=== PATIENT | female | born 1995 | race American Indian/Alaskan Native ===

== ENCOUNTER 2020-11-02 21:02 | Emergency (ER) | payer SELFPAY ==
[~2020-11-02] VITALS: Ht 172.7 cm; Wt 88.1 kg
[2020-11-02 21:03] VITALS: BP 144/70
--- NOTE | 2020-11-02 22:42 | REPVR ---
PROCEDURE INFORMATION: Exam: XR Right Knee Exam date and time: 11/02/2020 9:17 PM Age: 24 years old Clinical indication: Other: Pain, truma, injury; Additional info: Pain, trauma, injury TECHNIQUE: Imaging protocol: XR Right knee. Views: 4 or more views. COMPARISON: No relevant prior studies available. FINDINGS: Bones/joints: There is no fracture or dislocation. The joint spaces are intact. Soft tissues: Normal. IMPRESSION: No fracture Electronically signed by: Shakeel Stover On 11/02/2020 22:42:27 PM
== END 2020-11-02 23:07 | disposition left against medical advice (07) ==
LOC: M ED 21:02
DX: Z53.21 Procedure and treatment not carried out due to patient leaving prior to being seen by health care provider (principal)

== ENCOUNTER 2021-05-03 11:15 | Emergency (ER) | payer SELFPAY ==
[~2021-05-03] VITALS: Ht 172.7 cm; Wt 103.1 kg
[2021-05-03] MEDS ORDERED: OSEL75CA PO (15:26)
[2021-05-03] MEDS ORDERED: VENTAER INH (15:52)
[2021-05-03 16:35] VITALS: BP 131/84
== END 2021-05-03 16:35 | disposition home or self-care (01) ==
LOC: M ED 11:15
DX: J09.X9 Influenza due to identified novel influenza A virus with other manifestations (principal); R01.1 Cardiac murmur, unspecified; Z88.0 Allergy status to penicillin; F17.210 Nicotine dependence, cigarettes, uncomplicated
CPT/HCPCS: 99283; U0003

== ENCOUNTER 2021-06-20 18:22 | Emergency (ER) | payer SELFPAY ==
[~2021-06-20] VITALS: Ht 172.7 cm; Wt 106.3 kg
[~2021-06-20 18:22] MED LIST: OSEL75CA PO; VENTAER INH
[2021-06-20] MEDS ORDERED: BACTRIM 160MG/800MG DS TAB PO ONE (20:15)
[2021-06-20] MEDS ORDERED: BACT800T5 PO (20:16)
[2021-06-20 20:32] VITALS: BP 135/83
== END 2021-06-20 20:39 | disposition home or self-care (01) ==
LOC: M ED 18:22
DX: L02.211 Cutaneous abscess of abdominal wall (principal); E66.9 Obesity, unspecified; F17.200 Nicotine dependence, unspecified, uncomplicated; Z88.0 Allergy status to penicillin

== ENCOUNTER 2022-01-15 23:36 | Inpatient (IN) | payer SELFPAY ==
[~2022-01-15] VITALS: Ht 172.7 cm; Wt 92.1 kg
[~2022-01-15 23:36] MED LIST changes: +BACT800T5 PO
[2022-01-16 00:31] LABS: MEAN CORPUSCULAR HEMOGLOBIN 28.4 pg (27.0-33.0); MEAN CORPUSCULAR HGB CONC 33.3 g/dl (32.0-36.5); MEAN CORPUSCULAR VOLUME 85.3 fl (80.0-96.0); PLATELET COUNT, AUTOMATED 256 10^3/uL (150-450); RED BLOOD COUNT 4.22 10^6/uL (4.00-5.40); WHITE BLOOD COUNT 6.9 10^3/uL (4.0-10.0)
[2022-01-16 00:57] LABS: RSV AMPLIFICATION NEGATIVE (NEGATIVE)
[2022-01-16 01:07] LABS: HCG, SERUM QUALITATIVE NEGATIVE (NEGATIVE)
[2022-01-16 01:21] LABS: ACETAMINOPHEN LEVEL < 2.0 UG/ML (10.0-30.0); ALBUMIN 3.3 GM/DL (3.2-5.2); ALT/SGPT 33 U/L (12-78); BILIRUBIN,DIRECT 0.1 MG/DL (0.0-0.2); BILIRUBIN,TOTAL 0.3 MG/DL (0.2-1.0); BLOOD UREA NITROGEN 7 MG/DL (7-18); CALCIUM LEVEL 8.9 MG/DL (8.5-10.1); CARBON DIOXIDE LEVEL 24 MEQ/L (21-32); CHLORIDE LEVEL 112 MEQ/L (98-107); CREATININE FOR GFR 0.69 MG/DL (0.55-1.30); ETHYL ALCOHOL (ETHANOL) < 0.003 % (0.000-0.010); GLOMERULAR FILTRATION RATE > 60.0 (>60); GLUCOSE, FASTING 179 MG/DL (70-100); POTASSIUM SERUM 4.1 MEQ/L (3.5-5.1); SALICYLATE LEVEL < 1.7 MG/DL (5.0-30.0); SODIUM LEVEL 141 MEQ/L (136-145); THYROID STIMULATING HORMONE 0.482 uIU/ML (0.358-3.740); TOTAL PROTEIN 6.5 GM/DL (6.4-8.2)
[2022-01-16 01:21] LABS: AMPHETAMINES LEVEL URINE NEGATIVE (NEGATIVE); BARBITURATES URINE NEGATIVE (NEGATIVE); BENZODIAZEPINES URINE NEGATIVE (NEGATIVE); CANNABINOIDS URINE POSITIVE (NEGATIVE); COCAINE METABOLITE URINE NEGATIVE (NEGATIVE); METHADONE URINE NEGATIVE (NEGATIVE); OPIATES URINE NEGATIVE (NEGATIVE); PHENCYCLIDINE URINE NEGATIVE (NEGATIVE)
[2022-01-16] MEDS ORDERED: guaiFENesin SYRUP 200MG 10ML UDC PO ONE (02:00)
[2022-01-16] MEDS ORDERED: TRAZ-252 PO (03:12)
[2022-01-16] MEDS ORDERED: SERT50TA29 PO (03:12)
[2022-01-16] MEDS ORDERED: PRED10PA PO (03:12)
[2022-01-16] MEDS ORDERED: BENZ200C70 PO (03:12)
[2022-01-16] MEDS ORDERED: IPRA6SP (03:12)
[2022-01-16] MEDS ORDERED: HOME MED LIST COMPLETE! XX SCH (03:15)
[2022-01-16] MEDS ORDERED: predniSONE 20 MG TAB PO ONE ×2 (06:00→07:00)
[2022-01-16] MEDS: SERTRALINE HCL 50 MG TAB PO SCH (08:18)
[2022-01-16] MEDS: BENZONATATE 100MG CAPSULE PO PRN ×2 (08:33→23:28)
[2022-01-16] MEDS ORDERED: IPRATROPIUM 0.06% NASAL SPRAY 15 ML (ATROVENT) SCH (09:00)
[2022-01-16] MEDS: IPRATROPIUM 0.06% NASAL SPRAY 15 ML (ATROVENT) PRN ×2 (09:31→23:29)
[2022-01-16] MEDS ORDERED: traZODone 100 MG TAB PO SCH (21:00)
[2022-01-17] MEDS ORDERED: guaiFENesin SYRUP 200MG 10ML UDC PO ONE (02:10)
[2022-01-17] MEDS: SERTRALINE HCL 50 MG TAB PO SCH (09:46)
[2022-01-17] MEDS: BENZONATATE 100MG CAPSULE PO PRN ×2 (10:23→20:19)
[2022-01-17] MEDS: IPRATROPIUM 0.06% NASAL SPRAY 15 ML (ATROVENT) PRN ×2 (10:23→20:55)
[2022-01-17] MEDS ORDERED: predniSONE 20 MG TAB PO ONE (11:25)
[2022-01-17] MEDS ORDERED: OLANZapine ORAL DISINTEGRATING TAB 5MG PO PRN (12:45)
[2022-01-17] MEDS ORDERED: IBUPROFEN 400MG TAB PO PRN (12:45)
[2022-01-17] MEDS ORDERED: traZODone 50 MG TAB PO PRN (12:45)
[2022-01-17] MEDS ORDERED: MAALOX 30 ML SUSP *UDC PO PRN (12:45)
[2022-01-17] MEDS ORDERED: diphenhydrAMINE 25MG CAP PO PRN (12:45)
[2022-01-17] MEDS ORDERED: MOM 30ML SUSPENSION UDC PO PRN (12:45)
[2022-01-17 18:30] VITALS: BP 133/78
[2022-01-17] MEDS ORDERED: traZODone 100 MG TAB PO SCH (21:00)
[2022-01-18] MEDS: BENZONATATE 100MG CAPSULE PO PRN ×2 (01:48→08:33)
[2022-01-18 06:30] VITALS: BP 133/72
[2022-01-18] MEDS: IPRATROPIUM 0.06% NASAL SPRAY 15 ML (ATROVENT) PRN (08:33)
[2022-01-18] MEDS ORDERED: predniSONE 10 MG TAB PO SCH (09:00)
[2022-01-18] MEDS ORDERED: LIDOCAINE 5% (LIDODERM) PATCH TD SCH (09:00)
[2022-01-18] MEDS ORDERED: SERTRALINE HCL 50 MG TAB PO SCH (09:00)
[2022-01-18] MEDS ORDERED: DOXY-350 PO (12:10)
[2022-01-18] MEDS ORDERED: **NOTE PATIENT COMMENT** MISC XX SCH (21:00)
[2022-01-18] MEDS ORDERED: DOXYCYCLINE HYCLATE 100MG TABLET PO SCH (21:00)
== END 2022-01-18 15:51 | disposition home or self-care (01) | DRG 754 ==
LOC: M ED 23:36 → M ED INP 01-17 12:42 → M PSY 01-17 13:57
PROVIDERS: ADMIT Psychiatry & Neurology Psychiatry; ATTEND Student in an Organized Health Care Education/Training Program
DX: F32.A Depression, unspecified (principal); R45.851 Suicidal ideations; F41.1 Generalized anxiety disorder; F60.3 Borderline personality disorder; J01.90 Acute sinusitis, unspecified; Z63.0 Problems in relationship with spouse or partner; Z91.51 Personal history of suicidal behavior; Z90.49 Acquired absence of other specified parts of digestive tract; Z79.52 Long term (current) use of systemic steroids; Z79.899 Other long term (current) drug therapy; Z88.0 Allergy status to penicillin; Z88.1 Allergy status to other antibiotic agents; Z20.822 Contact with and (suspected) exposure to COVID-19

== ENCOUNTER 2022-03-08 11:15 | Inpatient (IN) | payer SELFPAY ==
[~2022-03-08] VITALS: Ht 175.3 cm; Wt 93.6 kg
[~2022-03-08 11:15] MED LIST changes: +BENZ200C70 PO; +DOXY-444 PO; +IPRA6SP; +PRED10PA PO; +SERT50TA29 PO; +TRAZ-252 PO
[2022-03-08 13:22] LABS: HEMATOCRIT 37.7 % (36.0-47.0); HEMOGLOBIN 12.4 g/dl (12.0-15.5); MEAN CORPUSCULAR HEMOGLOBIN 27.7 pg (27.0-33.0); MEAN CORPUSCULAR HGB CONC 32.9 g/dl (32.0-36.5); MEAN CORPUSCULAR VOLUME 84.2 fl (80.0-96.0); PLATELET COUNT, AUTOMATED 294 10^3/uL (150-450); RED BLOOD COUNT 4.48 10^6/uL (4.00-5.40); WHITE BLOOD COUNT 9.3 10^3/uL (4.0-10.0)
[2022-03-08 13:56] LABS: RSV AMPLIFICATION NEGATIVE (NEGATIVE)
[2022-03-08 13:58] LABS: HCG, SERUM QUALITATIVE NEGATIVE (NEGATIVE)
[2022-03-08 14:17] LABS: ACETAMINOPHEN LEVEL < 2.0 UG/ML (10.0-30.0); ALBUMIN 3.6 GM/DL (3.2-5.2); ALT/SGPT 33 U/L (12-78); BILIRUBIN,DIRECT 0.2 MG/DL (0.0-0.2); BILIRUBIN,TOTAL 0.4 MG/DL (0.2-1.0); BLOOD UREA NITROGEN 14 MG/DL (7-18); CALCIUM LEVEL 9.2 MG/DL (8.5-10.1); CARBON DIOXIDE LEVEL 25 MEQ/L (21-32); CHLORIDE LEVEL 106 MEQ/L (98-107); CREATININE FOR GFR 0.66 MG/DL (0.55-1.30); ETHYL ALCOHOL (ETHANOL) < 0.003 % (0.000-0.010); GLOMERULAR FILTRATION RATE > 60.0 (>60); GLUCOSE, FASTING 102 MG/DL (70-100); POTASSIUM SERUM 4.1 MEQ/L (3.5-5.1); SALICYLATE LEVEL < 1.7 MG/DL (5.0-30.0); SODIUM LEVEL 140 MEQ/L (136-145); THYROID STIMULATING HORMONE 0.491 uIU/ML (0.358-3.740); TOTAL PROTEIN 7.1 GM/DL (6.4-8.2)
[2022-03-08 15:53] LABS: AMPHETAMINES LEVEL URINE NEGATIVE (NEGATIVE); BARBITURATES URINE NEGATIVE (NEGATIVE); BENZODIAZEPINES URINE NEGATIVE (NEGATIVE); CANNABINOIDS URINE POSITIVE (NEGATIVE); COCAINE METABOLITE URINE NEGATIVE (NEGATIVE); METHADONE URINE NEGATIVE (NEGATIVE); OPIATES URINE NEGATIVE (NEGATIVE); PHENCYCLIDINE URINE NEGATIVE (NEGATIVE)
[2022-03-08] MEDS ORDERED: HOME MED LIST COMPLETE! XX SCH (19:15)
[2022-03-09] MEDS ORDERED: ACETAMINOPHEN TAB 650MG DOSE (2X325MG) PO ONE ×2 (04:15→16:05)
[2022-03-09] MEDS ORDERED: traZODone 100 MG TAB PO ONE (04:40)
[2022-03-09] MEDS: SERTRALINE HCL 50 MG TAB PO SCH (09:15)
[2022-03-09] MEDS: traZODone 100 MG TAB PO SCH (21:04)
[2022-03-10] MEDS: SERTRALINE HCL 50 MG TAB PO SCH (09:41)
[2022-03-10] MEDS ORDERED: ACETAMINOPHEN TAB 650MG DOSE (2X325MG) PO ONE ×2 (15:10→20:40)
[2022-03-10] MEDS: traZODone 100 MG TAB PO SCH (20:53)
[2022-03-11] MEDS: SERTRALINE HCL 50 MG TAB PO SCH (10:22)
[2022-03-11] MEDS ORDERED: ACETAMINOPHEN TAB 650MG DOSE (2X325MG) PO ONE (12:25)
[2022-03-11] MEDS ORDERED: KETOROLAC TROMETHAMINE 10 MG TAB PO ONE (18:45)
[2022-03-11] MEDS: traZODone 100 MG TAB PO SCH (22:38)
[2022-03-12] MEDS: NICOTINE 21MG/24HR 1 EA TRANSDERMAL TD SCH (09:00)
[2022-03-12] MEDS: SERTRALINE HCL 50 MG TAB PO SCH (09:33)
[2022-03-12] MEDS ORDERED: MOM 30ML SUSPENSION UDC PO PRN (13:20)
[2022-03-12] MEDS ORDERED: traZODone 50 MG TAB PO PRN (13:20)
[2022-03-12] MEDS ORDERED: MAALOX 30 ML SUSP *UDC PO PRN (13:20)
[2022-03-12] MEDS: traZODone 100 MG TAB PO SCH (20:33)
[2022-03-12] MEDS: IBUPROFEN 400MG TAB PO PRN (20:34)
[2022-03-13 07:08] VITALS: BP 154/68
[2022-03-13] MEDS: IBUPROFEN 400MG TAB PO PRN ×2 (08:30→20:35)
[2022-03-13] MEDS: NICOTINE 21MG/24HR 1 EA TRANSDERMAL TD SCH (09:00)
[2022-03-13] MEDS ORDERED: OLANZapine 2.5MG TABLET PO PRN (13:15)
[2022-03-13] MEDS: traZODone 100 MG TAB PO SCH (20:12)
[2022-03-13] MEDS: tiZANidine 4 MG TAB PO PRN (20:58)
[2022-03-14 06:34] VITALS: BP 115/56
[2022-03-14] MEDS: NICOTINE 21MG/24HR 1 EA TRANSDERMAL TD SCH (09:00)
[2022-03-14] MEDS: tiZANidine 4 MG TAB PO PRN (17:19)
[2022-03-14] MEDS: traZODone 100 MG TAB PO SCH (20:09)
[2022-03-14] MEDS: ARIPiprazole 10 MG TAB PO SCH (20:09)
[2022-03-15] MEDS: tiZANidine 4 MG TAB PO PRN ×3 (03:21→19:50)
[2022-03-15 06:22] VITALS: BP 140/81
[2022-03-15] MEDS: NICOTINE 21MG/24HR 1 EA TRANSDERMAL TD SCH (07:22)
[2022-03-15] MEDS: ARIPiprazole 10 MG TAB PO SCH ×2 (08:41→19:50)
[2022-03-15] MEDS: IBUPROFEN 400MG TAB PO PRN ×2 (11:39→19:50)
[2022-03-15 18:17] VITALS: BP 156/95
[2022-03-15] MEDS: traZODone 100 MG TAB PO SCH (19:50)
[2022-03-16] MEDS: ARIPiprazole 10 MG TAB PO SCH ×2 (08:35→21:11)
[2022-03-16] MEDS: NICOTINE 21MG/24HR 1 EA TRANSDERMAL TD SCH (08:35)
[2022-03-16] MEDS: tiZANidine 4 MG TAB PO PRN ×2 (10:25→21:11)
[2022-03-16] MEDS: IBUPROFEN 400MG TAB PO PRN ×2 (10:26→21:12)
[2022-03-16 17:21] VITALS: BP 143/86
[2022-03-16] MEDS: traZODone 100 MG TAB PO SCH (21:11)
[2022-03-17] MEDS: IBUPROFEN 400MG TAB PO PRN ×2 (08:20→20:42)
[2022-03-17] MEDS: ARIPiprazole 10 MG TAB PO SCH ×2 (08:20→20:42)
[2022-03-17] MEDS: tiZANidine 4 MG TAB PO PRN ×2 (08:20→20:42)
[2022-03-17] MEDS: NICOTINE 21MG/24HR 1 EA TRANSDERMAL TD SCH (08:56)
[2022-03-17 16:39] VITALS: BP 145/81
[2022-03-17] MEDS: traZODone 100 MG TAB PO SCH (20:42)
[2022-03-18 06:21] VITALS: BP 142/85
[2022-03-18] MEDS: NICOTINE 21MG/24HR 1 EA TRANSDERMAL TD SCH (08:07)
[2022-03-18] MEDS: tiZANidine 4 MG TAB PO PRN ×2 (08:10→20:42)
[2022-03-18] MEDS: IBUPROFEN 400MG TAB PO PRN ×2 (08:10→15:35)
[2022-03-18] MEDS: ARIPiprazole 10 MG TAB PO SCH ×2 (09:36→20:42)
[2022-03-18 16:40] VITALS: BP 124/62
[2022-03-18] MEDS: traZODone 100 MG TAB PO SCH (20:42)
[2022-03-19] MEDS: tiZANidine 4 MG TAB PO PRN (05:00)
[2022-03-19 06:24] VITALS: BP 111/56
[2022-03-19] MEDS: NICOTINE 21MG/24HR 1 EA TRANSDERMAL TD SCH (09:00)
[2022-03-19] MEDS: ARIPiprazole 10 MG TAB PO SCH (09:08)
[2022-03-19] MEDS ORDERED: ABIL10TA9 PO (10:32)
[2022-03-19] MEDS ORDERED: NICO21PAT TD (10:32)
[2022-03-19] MEDS ORDERED: TRAZ-257 PO (10:32)
== END 2022-03-19 13:01 | disposition home or self-care (01) | DRG 753 ==
LOC: M ED 11:15 → M ED INP 03-12 13:33 → M PSY 03-12 14:34
PROVIDERS: ADMIT Student in an Organized Health Care Education/Training Program; ATTEND Student in an Organized Health Care Education/Training Program
DX: F31.60 Bipolar disorder, current episode mixed, unspecified (principal); R45.851 Suicidal ideations; U07.1 COVID-19; Z81.8 Family history of other mental and behavioral disorders; F17.290 Nicotine dependence, other tobacco product, uncomplicated; Z79.899 Other long term (current) drug therapy; Z88.0 Allergy status to penicillin; Z88.1 Allergy status to other antibiotic agents; F60.89 Other specific personality disorders; F43.10 Post-traumatic stress disorder, unspecified; F43.0 Acute stress reaction; Z63.0 Problems in relationship with spouse or partner; Z91.51 Personal history of suicidal behavior